=== PATIENT | female | born 1995 | race Hispanic/Latino ===

== ENCOUNTER 2024-05-23 15:32 | Emergency (ER) | payer SELFPAY ==
[~2024-05-23] VITALS: Ht 154.9 cm; Wt 73.5 kg
[2024-05-23] MEDS: SODIUM CHLORIDE 0.9% 1000ML 1,000 ML IV STA (16:33)
[2024-05-23] MEDS: MECLIZINE HCL 12.5 MG TAB PO ONE (16:34)
[2024-05-23 16:41] LABS: BASOPHILS % 0.3 % (0.0-1.0); EOSINOPHILS # (AUTO) 0.1 (0.0-0.4); EOSINOPHILS % 1.3 % (0.0-6.0); HEMATOCRIT 41.4 % (34.2-44.1); HEMOGLOBIN 13.7 g/dL (12.0-16.0); LYMPHOCYTES # (AUTO) 4.8 (1.0-3.2); LYMPHOCYTES % 46.4 % (18.0-39.1); MEAN CORPUSCULAR HEMOGLOBIN 30.1 pg (28-32); MEAN CORPUSCULAR HGB CONC 33.1 g/dL (31-35); MONOCYTES # (AUTO) 0.5 (0.2-0.8); MONOCYTES % 5.2 % (4.4-11.3); NEUTROPHILS # (AUTO) 4.9 (2.1-6.9); NEUTROPHILS % 46.6 % (38.7-80.0); PLATELET COUNT 293 x10e3/uL (140-360); RED BLOOD COUNT 4.55 x10e6/uL (3.6-5.1); RED CELL DISTRIBUTION WIDTH 11.2 % (11.7-14.4); WHITE BLOOD COUNT 10.39 x10e3/uL (4.8-10.8)
[2024-05-23 16:53] LABS: INR 0.94; PARTIAL THROMBOPLASTIN TIME 23.5 seconds (23.8-35.5); PROTHROMBIN TIME 13.2 seconds (11.9-14.5)
[2024-05-23 16:59] LABS: CREATINE KINASE 54 IU/L (29-168); MAGNESIUM 1.9 MG/DL (1.3-2.1)
[2024-05-23 17:01] LABS: ALBUMIN 3.8 g/dL (3.5-5.0); ALBUMIN/GLOBULIN RATIO 1.1 (0.8-2.0); ANION GAP 12.5 mmol/L (8-16); BILIRUBIN,TOTAL 0.9 mg/dL (0.2-1.2); CALCIUM 9.1 mg/dL (8.4-10.2); CREATININE, SERUM 0.8 mg/dL (0.57-1.11); POTASSIUM 3.5 mmol/L (3.5-5.1); TOTAL PROTEIN 7.2 g/dL (6.5-8.1)
[2024-05-23 17:05] LABS: TROPONIN I 0.011 ng/mL (0-0.300)
[2024-05-23 18:30] VITALS: PULSE 81; RESP 16; TEMP 98.4; O2SAT 100
[2024-05-23] MEDS ORDERED: MECLIZINE HCL12.5 MG PO (18:33)
[2024-05-23] MEDS ORDERED: ONDANSETRON ODT4 MG PO (18:33)
[2024-05-23] MEDS ORDERED: MECLIZINE HCL25 MG PO (18:40)
== END 2024-05-23 18:44 | disposition home or self-care (01) ==
LOC: ER 15:40
DX: R42 Dizziness and giddiness (principal)
CPT/HCPCS: 36415; 70450; 80053; 82550; 83735; 84484; 84702; 85025; 85610; 85730; 93005; 99284; J7030; J8597